=== PATIENT | male | born 1975 | race Asian ===

== ENCOUNTER 2018-12-11 23:31 | Emergency (ER) | payer SELFPAY ==
[~2018-12-11] VITALS: Ht 167.6 cm; Wt 79.4 kg
[2018-12-11 23:38] VITALS: BP 128/91
--- NOTE | 2018-12-12 00:31 | NUR ---
PT REFUSED CXR. AWARE
== END 2018-12-12 01:27 | disposition left against medical advice (07) ==
LOC: ER 23:33
DX: R00.2 Palpitations (principal)